=== PATIENT | female | born 1960 | race Caucasian/White ===

== ENCOUNTER 2020-07-14 18:07 | Emergency (ER) | payer OTHER ==
--- NOTE | 2020-07-14 18:55 | EDM.PDOC ---
ED HPI GENERAL MEDICAL PROBLEM - General Chief Complaint: Genitourinary Problem Stated Complaint: BLADDER INFECTION Time Seen by Provider: 07/14/20 18:53 Source of Information: Reports: Patient, RN Notes Reviewed History Limitations: Reports: No Limitations - History of Present Illness INITIAL COMMENTS - FREE TEXT/NARRATIVE: 59-year-old female presents emergency department with a complaint of dysuria, she states it really started today has progressively gotten worse she is also noticed some blood in her urine no back pain no fevers - Related Data Allergies Allergy/AdvReac Type Severity Reaction Status Date / Time No Known Allergies Allergy Verified 07/14/20 18:23 Home Meds: Home Meds NK [No Known Home Meds] 07/14/20 [History] Past Medical History [employer] History: Reports: - Infectious Disease History Infectious Disease History: Reports: Chicken Pox, Mumps Social & Family History - Tobacco Use Tobacco Use Status *Q: Never Tobacco User - Caffeine Use Caffeine Use: Reports: Coffee, Soda - Recreational Drug Use Recreational Drug Use: No ED ROS GENERAL - Review of Systems Review Of Systems: See Below Constitutional: Reports: No Symptoms Respiratory: Reports: No Symptoms Cardiovascular: Reports: No Symptoms GI/Abdominal: Reports: No Symptoms : Reports: Dysuria, Hematuria ED EXAM, RENAL/ - Physical Exam Exam: See Below Exam Limited By: No Limitations General Appearance: Alert, WD/WN, No Apparent Distress Respiratory/Chest: No Respiratory Distress Back Exam: Normal Inspection, Full Range of Motion. No: CVA Tenderness (R), CVA Tenderness (L) Course - Vital Signs Last Recorded V/S: Last Vital Signs Temp 98.8 F 07/14/20 18:20 Pulse 109 H 07/14/20 18:20 Resp 16 07/14/20 18:20 BP 158/87 H 07/14/20 18:20 Pulse Ox 96 07/14/20 18:20 - Orders/Labs/Meds Orders: Active Orders 24 hr Category Date Time Status CULTURE URINE [RM] Urgent Lab 07/14/20 18:49 Ordered Labs: Laboratory Tests 07/14/20 Range/Units 18:15 Urine Color Red A (YELLOW) Urine Appearance Turbid A (CLEAR) Urine pH 6.0 (5.0-8.0) Ur Specific Leslie >= 1.030 (1.008-1.030) Urine Protein >=300 H (NEGATIVE) mg/dL Urine Glucose (UA) Negative (NEGATIVE) mg/dL Urine Ketones Negative (NEGATIVE) mg/dL Urine Occult Blood Large H (NEGATIVE) Urine Nitrite Negative (NEGATIVE) Urine Bilirubin Negative (NEGATIVE) Urine Urobilinogen 0.2 (0.2-1.0) EU/dL Ur Leukocyte Esterase Trace H (NEGATIVE) Urine RBC 40-50 H (0-5) Urine WBC 20-30 H (0-5) Ur Epithelial Cells Not seen Amorphous Sediment Not seen Urine Bacteria Few Urine Mucus Not seen Departure - Departure Time of Disposition: 18:54 Disposition: Home, Self-Care 01 Condition: Fair Clinical Impression: UTI, Urinary tract infectious disease - Discharge Information Instructions: Urinary Tract Infection, Adult Referrals: PCP,None [Primary Care Provider] - Additional Instructions: Take full course of antibiotics, please followup with your primary care provider in 5-7 days if not better, please call return to the emergency department with worsening of symptoms. Sepsis Event Note (ED) - Evaluation Sepsis Screening Result: No Definite Risk - Focused Exam Vital Signs: Vital Signs Temp Pulse Resp BP Pulse Ox 07/14/20 18:20 98.8 F 109 H 16 158/87 H 96 07/14/20 18:18 98.8 F 109 H 16 158/87 H 96 - My Orders Last 24 Hours: My Active Orders 07/14/20 18:49 CULTURE URINE [RM] Urgent - Assessment/Plan Last 24 Hours: My Active Orders 07/14/20 18:49 CULTURE URINE [RM] Urgent Plan: Assessment Acuity = acute Site and laterality = urinary tract infection Etiology = probable bacterial cause Manifestations = dysuria Location of injury = Home Lab values = urinalysis reveals 40-50 RBCs consistent with hematuria, 20-30 WBCs consistent with pyuria cultures pending Plan Elected to treat empirically Bactrim DS 1 tab p.o. twice daily x3 days will contact when the culture results become available follow-up primary care in 5 to 7 days if not better This note was dictated using [employer] voice recognition software please call with any questions on syntax or grammar.
== END 2020-07-14 18:58 | disposition home or self-care (01) ==
LOC: JP.ED 18:07
DX: N39.0 Urinary tract infection, site not specified (principal); R31.9 Hematuria, unspecified
CPT/HCPCS: 81001; 87086; 87088; 87186; 99283